=== PATIENT | female | born 1970 | race Caucasian/White ===

== ENCOUNTER 2020-04-07 10:20 | Emergency (ER) | payer BC, SELFPAY ==
--- NOTE | 2020-04-07 10:36 | DI.RAD.S_ITS ---
PROCEDURE: XR SHOULDER RT MIN 2V INDICATIONS: fall in snow TECHNIQUE: 3 views of the shoulder were acquired. COMPARISON: None. FINDINGS: Bones: No acute fractures or dislocations. No suspicious bony lesions. Visualized ribs appear intact. Soft tissues: No suspicious soft tissue calcifications. IMPRESSION: Right shoulder without acute fracture or dislocation. Dictated by: César Rutherford M.D. on 04/07/2020 at 10:57 Approved by: César Rutherford M.D. on 04/07/2020 at 10:58
--- NOTE | 2020-04-07 10:36 | DI.RAD.S_ITS ---
PROCEDURE: XR ANKLE RT MIN 3V INDICATIONS: fall in snow TECHNIQUE: 3 views of the ankle were acquired. COMPARISON: None. FINDINGS: Bones: No fractures or dislocations. Ankle mortise is normally aligned. No suspicious bony lesions. Tiny retrocalcaneal spur. Soft tissues: No tibiotalar joint effusion. Achilles tendon appears normal. Mild soft tissue swelling of the lateral malleolus IMPRESSION: Lateral malleolar soft tissue swelling without underlying fracture or dislocation. Dictated by: César Rutherford M.D. on 04/07/2020 at 10:58 Approved by: César Rutherford M.D. on 04/07/2020 at 10:59
[2020-04-07 10:39] VITALS: BP 131/81; PULSE 71; RESP 15; TEMP 36.6; O2SAT 99; BMI 23.5
[2020-04-07] MEDS: IBUPROFEN 400 MG TABLET PO (11:10)
[2020-04-07] MEDS: ACETAMINOPHEN 325 MG TABLET 650 MG PO (11:10)
--- NOTE | 2020-04-07 11:12 | ED_ITS ---
HPI - Extremity Injury (Lower) <FRANKIE Barker - Last Filed: 04/07/20 12:13> General Chief Complaint: Extremity Injury, Lower Stated Complaint: SLIPPED IN SNOW LAST NIGHT, SWOLLEN R ANKLE Time Seen by Provider: 04/07/20 10:35 Source: patient Mode of arrival: Wheelchair Limitations: no limitations History of Present Illness HPI Narrative: This is a 49 year female, nonsmoker, who has no pertinent medical history presents to ED with chief complain of right ankle and right posterior shoulder pain with limited range of motion after she had fall on snow yesterday. Patient denies injuring her head and is not currently on anticoagulant/antiplatelets. She denies loss of consciousness. She denies neuro deficit in upper extremities or mid cervical tenderness. Patient states there was black ice under the snow pile when she fall and twisted her ankle. She heard snap/popping sounds from the ankle and her right shoulder status post FOOSH. Patient has used ice pack and has been taking ibuprofen and last dose was at 6:00 a.m.. Patient reports intact sensation distally to injury sites. Patient denies history of right ankle or shoulder injuries. Related Data Allergies Allergy/AdvReac Type Severity Reaction Status Date / Time No Known Drug Allergies Allergy Verified 04/07/20 10:42 Review of Systems <FRANKIE Barker - Last Filed: 04/07/20 12:13> Review of Systems Narrative: General: Denies fever, chills, fatigue, malaise, sweats. HEENT: Denies sinus pain, ear pain, sore throat, difficulty swallowing, dizziness. Respiratory: Denies dyspnea, cough, wheezing, hemoptysis, sputum. Cardiovascular: Denies chest pain, palpitations, orthopnea, edema. Musculoskeletal: See HPI Skin: Denies rash, skin lesions, open skin injury or other. Neurologic: Denies weakness, headache, numbness, change in speech, confusion, seizures, incoordination. Psychiatric: No concerning psychosocial issues. Patient History <FRANKIE Barker - Last Filed: 04/07/20 12:13> Surgical History History of hip surgery Social History Smoking Status: Never smoker Smoking Status: Never smoker alcohol intake frequency: 0-2 drinks per day Substance Use Type: does not use Exam <Yvon FRANKIE Lopez - Last Filed: 04/07/20 12:13> Narrative Exam Narrative: General appearance: well developed, well nourished, in no acute distress. Head: normocephalic, atraumatic, no scalp lesions, non-tender. ENT: Hearing grossly intact. Airway patent. Neck/Thyroid: neck supple, full range of motion, no visible masses or meningeal signs. No JVD, non-tender without lymphadenopathy. Skin: no suspicious rashes, lesions over visible areas. Warm and dry and appropriate color for ethnicity. Heart: no clubbing, no cyanosis, no edema. Lungs: Breathing even and unlabored. No stridor. No accessory muscles used. Able to speak in full sentences. Chest: normal shape and expansion. Abdomen: non-obese, non-distended. Neurologic: alert and oriented. Cognitive exam, [employer] and PNS grossly intact on informal exam. Psych: good eye contact, normal affect. Initial Vital Signs Initial Vital Signs: Vital Signs Temperature 97.8 F 04/07/20 10:39 Pulse Rate 71 04/07/20 10:39 Respiratory Rate 15 04/07/20 10:39 Blood Pressure 131/81 04/07/20 10:39 Pulse Oximetry 99 04/07/20 10:39 Extrem Right upper extremity: shoulder/upper arm Details: normal to inspection, tenderness Location: of the scapula (posterior shoulder) and abnormal ROM Details: pain with active ROM Details: in ADduction (90 degree) and in flexion (forward >90 degree, external roation), elbow/forearm Details: normal to inspection and normal ROM; no tenderness and no swelling, wrist Details: normal to inspection and normal ROM; no tenderness and no swelling and hand Details: normal to inspection, neuromotor exam normal, neurosensory exam normal, vascular exam Details: radial pulse present and normal capillary refill, normal ROM of fingers and no swelling; no unusual warmth Right lower extremity: knee Details: normal to inspection, normal ROM and knee ligament exam normal; no swelling and no deformity, lower leg Details: normal to inspection; no tenderness and no localized swelling, ankle Details: abnormal to inspection, tenderness Location: of the lateral malleolus, swelling Details: diffusely and laterally and abnormal ROM Details: pain with active ROM and pain with passive ROM; no unusual warmth, no abrasions, no lacerations and no ecchymosis and foot Details: normal capillary refill, normal to inspection, toes with normal ROM, vascular exam Details: dorsalis pedis pulse present and motor- sensory exam; no tenderness <Dontae Sales DO - Last Filed: 04/07/20 13:09> Initial Vital Signs Initial Vital Signs: Vital Signs Temperature 97.8 F 04/07/20 10:39 Pulse Rate 71 04/07/20 10:39 Respiratory Rate 15 04/07/20 10:39 Blood Pressure 131/81 04/07/20 10:39 Pulse Oximetry 99 04/07/20 10:39 Procedures <FRANKIE Barker - Last Filed: 04/07/20 12:13> Orthopedic Splinting/Casting Injury #1: Side: right Lower Extremity Injury Location: ankle Lower Extremity Immobilizer: stirrup splint Other Orthopedic Equipment: crutches Post splinting neuro exam: intact Post splinting vascular exam: intact Placed by: Nursing Scores <FRANKIE Barker - Last Filed: 04/07/20 12:13> GCS [place] coma scale eye opening: Spontaneous [place] coma scale verbal response: Orientated [place] coma scale motor response: Obey commands [place] coma scale total score: 15 Course <FRANKIE Barker - Last Filed: 04/07/20 12:13> Orders Ordered: ED Orders 04/07/20 10:36 XR ankle RT min 3V Stat XR shoulder RT min 2V Stat Discontinued Medications Acetaminophen (Acetaminophen 325 Mg Tablet) 650 mg PO NOW ONE Stop: 04/07/20 11:07 Last Admin: 04/07/20 11:10 Dose: 650 mg Documented by: KAROLINA Ibuprofen (Ibuprofen 400 Mg Tablet) 400 mg PO NOW ONE Stop: 04/07/20 11:07 Last Admin: 04/07/20 11:10 Dose: 400 mg Documented by: KAROLINA Vital Signs Vital signs: Vital Signs - 8 hr 04/07/20 10:39 04/07/20 12:05 Temperature 97.8 F 98.0 F Pulse Rate 71 82 Respiratory Rate 15 15 Blood Pressure 131/81 138/82 Pulse Oximetry 99 97 <Dontae Sales DO - Last Filed: 04/07/20 13:09> Orders Ordered: ED Orders 04/07/20 10:36 XR ankle RT min 3V Stat XR shoulder RT min 2V Stat Discontinued Medications Acetaminophen (Acetaminophen 325 Mg Tablet) 650 mg PO NOW ONE Stop: 04/07/20 11:07 Last Admin: 04/07/20 11:10 Dose: 650 mg Documented by: KAROLINA Ibuprofen (Ibuprofen 400 Mg Tablet) 400 mg PO NOW ONE Stop: 04/07/20 11:07 Last Admin: 04/07/20 11:10 Dose: 400 mg Documented by: KAROLINA Vital Signs Vital signs: Vital Signs - 8 hr 04/07/20 10:39 04/07/20 12:05 Temperature 97.8 F 98.0 F Pulse Rate 71 82 Respiratory Rate 15 15 Blood Pressure 131/81 138/82 Pulse Oximetry 99 97 MDM - Extremity Injury (Lower) <FRANKIE Barker - Last Filed: 04/07/20 12:13> Differential Diagnosis Differential diagnosis: Likely ankle sprain and strain, ankle fracture and other (shoulder dislocation, shoulder strain) Medical Records Attestation: I reviewed the patient's medical records. Imaging Data XR-Ankle RT: Radiologist's Impression: [address] [id number] ReportSigned Patient: TRELL FREDERICK BMR#: [id number]: 1970Acct:[id number]/Sex: 49 / FDate of Service: 04/07/20Loc: EDAccession Number: [id number] Procedure: XR ankle RT min 3V Ordering Provider: Yvon Lopez PROCEDURE: XR ANKLE RT MIN 3V INDICATIONS: fall in snow TECHNIQUE: 3 views of the ankle were acquired. COMPARISON: None. FINDINGS: Bones: No fractures or dislocations. Ankle mortise is normally aligned. No carver spicious bony lesions. Tiny retrocalcaneal spur. Soft tissues: No tibiotalar joint effusion. Achilles tendon appears normal. Mild soft tissue swelling of the lateral malleolus IMPRESSION: Lateral malleolar soft tissue swelling without underlying fracture or dislocation. Dictated by: César Rutherford M.D. on 04/07/2020 at 10:58 Approved by: César Rutherford M.D. on 04/07/2020 at 10:59 XR-Shoulder RT: Radiologist's Impression: [address] [id number] ReportSigned Patient: TRELL FREDERICK BMR#: [id number]: 1970Acct:[id number]/Sex: 49 / FDate of Service: 04/07/20Loc: EDAccession Number: [id number] Procedure: XR shoulder RT min 2V Ordering Provider: Yvon Lopez PROCEDURE: XR SHOULDER RT MIN 2V INDICATIONS: fall in snow TECHNIQUE: 3 views of the shoulder were acquired. COMPARISON: None. FINDINGS: Bones: No acute fractures or dislocations. No suspicious bony lesions. Visualized ribs appear intact. Soft tissues: No suspicious soft tissue calcifications. IMPRESSION: Right shoulder without acute fracture or dislocation. Dictated by: César Rutherford M.D. on 04/07/2020 at 10:57 Approved by: César Rutherford M.D. on 04/07/2020 at 10:58 [facility] Narrative Medical decision making narrative: This is a 49 year old female who presents to ED with chief complain of right lateral ankle and posterior right shoulder pain after she had fall on snow yesterday. Distal neurovascular exams on right hand and foot intact. Mild swelling to right lateral ankle. Xray tests on right shoulder and right ankle negative for acute findings. Affected ankle splinted with prefabricated ankle splint and crutches are fit and dispensed with teaching. She was able to demonstrate back the crutch use. Patient advised to follow-up with primary care physician if pain persists longer than expected and may need a referral to physical therapist. Return precautions discussed with patient and she verbalized understanding in agreement with the treatment plan. Discharge Plan Departure Patient Disposition: Home Clinical Impression: Ankle sprain and strain Acute shoulder pain Qualifiers: Laterality: right Qualified Code(s): M25.511 - Pain in right shoulder Instructions: DI for Ankle Sprain, DI for Shoulder Pain Activity Restrictions/Additional Instructions: You have been diagnosed with [right lateral ankle sprain and shoulder pain from a fall. X-ray test does not show acute findings on ankle and shoulder ]. What to do: *Take your medications as directed. You can take [id number] Tylenol and or Motrin as needed for discomfort. Tylenol 650-1000 mg up to 3 to 4 times a day as needed. Ibuprofen 400-600 mg up to 3 times a day with food to decrease GI irritations. Please use RICE therapy-Rest, Ice, Compression and Elevation for comfort. *Follow up with your primary care provider in 2-3 days, call for an appointment. Let them know you were seen in the ED and that we asked you to be seen in follow up. Consider reimaging test if pain persists longer than expected. *Return to ED if you have any new, worsening, or concerning symptoms, such as [worsening pain, swelling, tingling/numbness/weakness to affected extremities, chest pain, breathing difficulty, unable to tolerate fluids, or any acute concerns]. Referrals: Kassidy Giles MD [Primary Care Provider] - <Dontae Sales DO - Last Filed: 04/07/20 13:09> Cosign ED Attending Jordanature Attestation: I was immediately available in the department for consultation. This docum entation has been reviewed and I agree with assessment and plan. Supervised by Dontae Sales DO
[2020-04-07 12:05] VITALS: BP 138/82; PULSE 82; RESP 15; TEMP 36.7; O2SAT 97
--- NOTE | 2020-04-07 12:05 | PC.NURSE ---
patient demonstrated slow steady gate with crutches. Patient able to tolerate crutches with right shoulder injury.
== END 2020-04-07 12:10 | disposition home or self-care (01) ==
PROVIDERS: Emergency Provider Nurse Practitioner Family; PCP Family Medicine
DX: S93.401A Sprain of unspecified ligament of right ankle, initial encounter (principal); S96.911A Strain of unspecified muscle and tendon at ankle and foot level, right foot, initial encounter; M25.511 Pain in right shoulder; W00.0XXA Fall on same level due to ice and snow, initial encounter
CPT/HCPCS: 29540; 73030; 73610; 99283

== ENCOUNTER → 2020-05-06 11:08 | Outpatient (CLI) | payer BC, SELFPAY ==
--- NOTE | 2020-05-06 | DI.MRI.S_ITS ---
PROCEDURE: MR SHOULDER RT WO CON INDICATIONS: Unspecified injury of muscle(s) and tendon(s) TECHNIQUE: Noncontrast oblique coronal T2 fast spin echo with fat saturation, oblique sagittal T1 spin echo and T2 fast spin echo with fat saturation, axial T1 spin echo and T2 fast spin echo with fat saturation through the shoulder. COMPARISON: [facility], CR, XR SHOULDER RT MIN 2V, 04/07/2020, 10:39. FINDINGS: Image quality: Excellent. Rotator cuff: Tendinosis and low to moderate grade articular and bursal surface partial thickness tear involving distal supraspinatus at its insertion on the humeral head is seen extending to musculotendinous junction. Distal infraspinatus tendinosis is also noted. Distal subscapularis tendinosis and low-grade intrasubstance partial-thickness tear is seen. Sagittal images demonstrate no significant muscle atrophy. Bones and bursae: No bone marrow contusions or fractures. Mild to moderate acromioclavicular joint osteoarthritic changes are noted. The acromion demonstrates conventional anatomy, without an os acromiale. Small amount of joint effusion and subacromial subdeltoid bursal fluid is seen. Capsule and soft tissues: In the absence of intra-articular contrast, there is suggestion of superior anterior labral tear at 12 to 1 o'clock position. The glenohumeral ligaments appear intact. The long head of the biceps tendon demonstrates normal location and morphology. The rotator interval appears normal, without fibrosis. The coracohumeral ligament is normal in thickness. IMPRESSION: 1. Tendinosis and low to moderate grade articular and bursal surface partial thickness tear involving distal supraspinatus extending to musculotendinous junction. Distal infraspinatus tendinosis. Distal subscapularis tendinosis and low-grade intrasubstance partial-thickness tear. 2. Mild to moderate acromioclavicular joint osteoarthritis and small amount of joint effusion and subacromial subdeltoid bursal fluid. 3. Suggestion of focal superior anterior labral tear at 12 to 1 o'clock position. Dictated by: Robinson Woods M.D. on 05/06/2020 at 15:57 Approved by: Robinson Woods M.D. on 05/06/2020 at 16:05
== END ==
PROVIDERS: PCP Family Medicine; Referring Provider Family Medicine; Visit Provider Family Medicine
DX: S46.011A Strain of muscle(s) and tendon(s) of the rotator cuff of right shoulder, initial encounter (principal); M19.011 Primary osteoarthritis, right shoulder; M25.411 Effusion, right shoulder
CPT/HCPCS: 73221